=== PATIENT | male | born 1980 | race Caucasian/White ===

== ENCOUNTER → 2017-01-31 | Outpatient (CLI) | payer OTHER ==
[2017-01-31 12:11] LABS: BASO % 1.1 %; BASO ABS # 0.04 K/uL (0-0.2); COMPLETE YES; EOS % 1.9 %; IG% 0.3 %; LYMPH % 36.6 %; LYMPH ABS # 1.37 K/uL (1.2-3.4); MEAN CELL VOLUME 88.1 fL (80-100); MEAN CORPUSCULAR HEMOGLOBIN 31.4 pg (25-34); MEAN CORPUSCULAR HGB CONC 35.6 g/dl (32-36); MEAN PLATELET VOLUME 10.5 fL (7.4-10.4); MONO % 7.8 %; NEUT % 52.3 %; PLATELET COUNT 305 K/uL (130-400); RED BLOOD COUNT 4.88 M/uL (4.7-6.1); WHITE BLOOD COUNT 3.74 K/uL (4.8-10.8)
== END | disposition home or self-care (01) ==
LOC: C.LABPBG 10:27
PROVIDERS: ATTEND Family Medicine
DX: F11.20 Opioid dependence, uncomplicated (principal)

== ENCOUNTER 2017-07-02 15:34 | Emergency (ER) | payer OTHER ==
[~2017-07-02] VITALS: Ht 170.2 cm; Wt 54.1 kg
[2017-07-02 15:35] VITALS: TEMP 36.7; Ht 170.2 cm; Wt 54.1 kg
[2017-07-02] MEDS ORDERED: SODIUM CHLORIDE 0.9% 1000ML 1,000 ML IV STA (15:49)
[2017-07-02] MEDS ORDERED: BUPR1SUB23 PO (16:15)
[2017-07-02] MEDS ORDERED: CITA10TA4 PO (16:15)
[2017-07-02 16:31] LABS: BASO % 0.4 %; BASO ABS # 0.02 K/uL (0-0.2); EOS % 0.6 %; EOS ABS # 0.03 K/uL (0-0.5); HEMATOCRIT 40.4 % (42-52); HEMOGLOBIN 14.8 g/dL (14.0-18.0); IG# 0.01 K/uL (0.00-0.02); LYMPH % 32.8 %; LYMPH ABS # 1.59 K/uL (1.2-3.4); MEAN CELL VOLUME 87.6 fL (80-100); MEAN CORPUSCULAR HEMOGLOBIN 32.1 pg (25-34); MEAN CORPUSCULAR HGB CONC 36.6 g/dl (32-36); MEAN PLATELET VOLUME 10.6 fL (7.4-10.4); MONO % 7.8 %; MONO ABS # 0.38 K/uL (0.11-0.59); NEUT % 58.2 %; NEUT ABS # 2.82 K/uL (1.4-6.5); PLATELET COUNT 233 K/uL (130-400); RED CELL DISTRIBUTION WIDTH SD 41.7 fL (36.4-46.3); WHITE BLOOD COUNT 4.85 K/uL (4.8-10.8)
[2017-07-02 16:42] LABS: PTT PATIENT 27.1 SECONDS (21.0-31.0)
--- NOTE | 2017-07-02 16:42 | DIAGNOSTIC IMAGING REPORT ---
CHEST ONE VIEW PORTABLE CLINICAL HISTORY: 36 years-old Male presenting with ABDOMINAL PAIN/GI. TECHNIQUE: Portable upright AP view of the chest was obtained. COMPARISON: None. FINDINGS: Cardiomediastinal silhouette normal. Mild hyperinflation. No focal opacity. No large effusion or pneumothorax. Osseous structures normal. Upper abdomen normal. IMPRESSION: 1. No acute cardiopulmonary disease. Electronically signed by: Leonardo Faulkner M.D. 07/02/2017 4:40 PM Dictated Date/Time: 07/02/2017 4:40 PM
--- NOTE | 2017-07-02 16:42 | DIAGNOSTIC IMAGING REPORT ---
KUB CLINICAL HISTORY: 36 years-old Male presenting with ABDOMINAL PAIN/GI. TECHNIQUE: Single supine view of the abdomen was obtained. COMPARISON: None. FINDINGS: Nonobstructive bowel gas pattern. No gross pneumoperitoneum. Allowing for bowel gas and stool, no calcifications to suggest nephrolithiasis. Osseous structures normal. Lung bases clear. IMPRESSION: 1. No acute intra-abdominal pathology. Electronically signed by: Leonardo Faulkner M.D. 07/02/2017 4:41 PM Dictated Date/Time: 07/02/2017 4:40 PM
[2017-07-02 16:48] LABS: ALBUMIN 4.7 gm/dl (3.4-5.0); ALT/SGPT 25 U/L (12-78); AST/SGOT 18 U/L (15-37); BLOOD UREA NITROGEN 14 mg/dl (7-18); CALCIUM 9.2 mg/dl (8.5-10.1); CARBON DIOXIDE 30 mmol/L (21-32); CREATININE 0.83 mg/dl (0.60-1.40); GLUCOSE 90 mg/dl (70-99); LIPASE 186 U/L (73-393); POTASSIUM 3.3 mmol/L (3.5-5.1); SODIUM 138 mmol/L (136-145)
[2017-07-02 16:54] LABS: ALKALINE PHOSPHATASE 58 U/L (45-117); CKMB 0.7 ng/ml (0.5-3.6); TOTAL PROTEIN 8.2 gm/dl (6.4-8.2)
[2017-07-02 19:30] VITALS: BP 97/71; PULSE 90; O2SAT 99
--- NOTE | 2017-07-02 19:41 | EMERGENCY ROOM VISIT NOTE ---
History Report prepared by Vy: Yesi Lucsa Under the Supervision of: Dr. Sha Butts D.O. First contact with patient: 15:39 Chief Complaint: CHEST PAIN Stated Complaint: CHEST PAIN, FATIGUE, WEAKNESS History of Present Illness The patient is a 36 year old male who presents to the Emergency Room with complaints of persistent chest pain starting a couple weeks ago. He describes the pain as sharp and it occurs with taking deep breaths. The patient also complains of fatigue mostly in his legs. He has been waking up in the morning with bilateral back pain and is concerned about his kidneys. He has noticed his urine is dark in the morning. He has noticed his heart racing when he is lying on his back. He has tingling in his left shoulder. He has felt out of breath with taking the garbage out. He denies any neck pain, headache, leg pain, leg swelling, abdominal pain, or hematochezia. His stools have been dark, but he is unsure if they are black. He has lost weight, but notes that he does not eat a lot. He has been on Suboxone after a history of prescription drug abuse. He denies any IV drug, alcohol, or tobacco use. He has a history of pneumothorax. He denies any family history of aortic aneurysm. Source of History: patient Onset: couple weeks ago Position: chest Quality: sharp Timing: other (persistent) Modifying Factors (Worsening): breathing Associated Symptoms: + SOB, + back pain, + urinary symptoms, + fatigue, No headache, No neck pain, No abdominal pain, No hematochezia Review of Systems See HPI for pertinent positives & negatives. A total of 10 systems reviewed and were otherwise negative. Past Medical & Surgical Medical Problems: (1) Pneumothorax Family History No family history of aortic aneurysm. Social History Smoking Status: Never Smoker Marital Status: single Occupation Status: unemployed Current/Historical Medications Scheduled Buprenorphine Hcl-Naloxone Hcl (Suboxone 8-2 Mg), 2 MG PO BID Citalopram Hydrobromide (Citalopram Hydrobromide), 10 MG PO DAILY Allergies Coded Allergies: No Known Allergies (Unverified , 07/02/17) Physical Exam Vital Signs Date Time Temp Pulse Resp B/P (MAP) Pulse Ox O2 Delivery O2 Flow Rate FiO2 07/02/17 19:30 90 18 97/71 99 3/7/18 18:59 67 18 117/69 100 Room Air 07/02/17 18:00 70 18 108/72 100 Room Air 07/02/17 17:00 75 18 110/70 100 Room Air 07/02/17 16:30 67 18 113/68 100 Room Air 07/02/17 16:28 65 07/02/17 15:35 36.7 71 20 121/62 100 Room Air Physical Exam GENERAL: Patient is awake, alert, and in no acute distress. Patient is resting comfortably and showing no signs of anxiety EYES: The conjunctivae are clear. The pupils are round and reactive. EARS, NOSE, MOUTH AND THROAT: The nose is without any evidence of any deformity. Mucous membranes are moist tongue is midline NECK: The neck is nontender and supple. RESPIRATORY: Lung sounds diminished in the right lung field. There was no wheezing rhonchi or rales appreciated. CARDIOVASCULAR: Regular rate and rhythm noted there no murmurs rubs or gallops normal S1 normal S2 GASTROINTESTINAL: The abdomen is soft. Bowel sounds are present in all quadrants. Abdomen is nontender MUSCULOSKELETAL/EXTREMITIES: There is no evidence of gross deformity full range of motion is noted in the hips and shoulders SKIN: There is no obvious evidence of any rash. There are no petechiae, pallor or cyanosis noted. NEUROLOGIC: Patient is awake alert and oriented x3 strength is symmetric patellar reflexes are 2+ bilaterally Medical Decision & Procedures ER Provider Diagnostic Interpretation: X-ray results as stated below per interpretation by me and the radiologist. CHEST ONE VIEW PORTABLE CLINICAL HISTORY: 36 years-old Male presenting with ABDOMINAL PAIN/GI. TECHNIQUE: Portable upright AP view of the chest was obtained. COMPARISON: None. FINDINGS: Cardiomediastinal silhouette normal. Mild hyperinflation. No focal opacity. No large effusion or pneumothorax. Osseous structures normal. Upper abdomen normal. IMPRESSION: 1. No acute cardiopulmonary disease. Electronically signed by: Leonardo Faulkner M.D. 07/02/2017 4:40 PM Dictated Date/Time: 07/02/2017 4:40 PM KUB CLINICAL HISTORY: 36 years-old Male presenting with ABDOMINAL PAIN/GI. TECHNIQUE: Single supine view of the abdomen was obtained. COMPARISON: None. FINDINGS: Nonobstructive bowel gas pattern. No gross pneumoperitoneum. Allowing for bowel gas and stool, no calcifications to suggest nephrolithiasis. Osseous structures normal. Lung bases clear. IMPRESSION: 1. No acute intra-abdominal pathology. Electronically signed by: Leonardo Faulkner M.D. 07/02/2017 4:41 PM Dictated Date/Time: 07/02/2017 4:40 PM Laboratory Results 07/02/17 16:15 Red Blood Count 4.61, Mean Corpuscular Volume 87.6, Mean Corpuscular Hemoglobin 32.1, Mean Corpuscular Hemoglobin Concent 36.6, Mean Platelet Volume 10.6, Neutrophils (%) (Auto) 58.2, Lymphocytes (%) (Auto) 32.8, Monocytes (%) (Auto) 7.8, Eosinophils (%) (Auto) 0.6, Basophils (%) (Auto) 0.4, Neutrophils # (Auto) 2.82, Lymphocytes # (Auto) 1.59, Monocytes # (Auto) 0.38, Eosinophils # (Auto) 0.03, Basophils # (Auto) 0.02 07/02/17 16:15 Test 07/02/17 16:05 07/02/17 16:15 07/02/17 16:24 07/02/17 18:06 Urine Color YELLOW Urine Appearance CLEAR (CLEAR) Urine pH 7.5 (4.5-7.5) Urine Specific [place] 1.007 (1.000-1.030) Urine Protein NEG (NEG) Urine Glucose (UA) NEG (NEG) Urine Ketones NEG (NEG) Urine Occult Blood TRACE (NEG) Urine Nitrite NEG (NEG) Urine Bilirubin NEG (NEG) Urine Urobilinogen NEG (NEG) Urine Leukocyte Esterase NEG (NEG) Urine WBC (Auto) 0 /hpf (0-5) Urine RBC (Auto) 0-4 /hpf (0-4) Urine Hyaline Casts (Auto) 0 /lpf (0-5) Urine Epithelial Cells (Auto) 0-5 /lpf (0-5) Urine Bacteria (Auto) NEG (NEG) White Blood Count 4.85 K/uL (4.8-10.8) Red Blood Count 4.61 M/uL (4.7-6.1) Hemoglobin 14.8 g/dL (14.0-18.0) Hematocrit 40.4 % (42-52) Mean Corpuscular Volume 87.6 fL (80-100) Mean Corpuscular Hemoglobin 32.1 pg (25-34) Mean Corpuscular Hemoglobin Concent 36.6 g/dl (32-36) Platelet Count 233 K/uL (130-400) Mean Platelet Volume 10.6 fL (7.4-10.4) Neutrophils (%) (Auto) 58.2 % Lymphocytes (%) (Auto) 32.8 % Monocytes (%) (Auto) 7.8 % Eosinophils (%) (Auto) 0.6 % Basophils (%) (Auto) 0.4 % Neutrophils # (Auto) 2.82 K/uL (1.4-6.5) Lymphocytes # (Auto) 1.59 K/uL (1.2-3.4) Monocytes # (Auto) 0.38 K/uL (0.11-0.59) Eosinophils # (Auto) 0.03 K/uL (0-0.5) Basophils # (Auto) 0.02 K/uL (0-0.2) RDW Standard Deviation 41.7 fL (36.4-46.3) RDW Coefficient of Variation 13.0 % (11.5-14.5) Immature Granulocyte % (Auto) 0.2 % Immature Granulocyte # (Auto) 0.01 K/uL (0.00-0.02) Prothrombin Time 11.0 SECONDS (9.0-12.0) Prothromb Time International Ratio 1.0 (0.9-1.1) Activated Partial Thromboplast Time 27.1 SECONDS (21.0-31.0) Partial Thromboplastin Ratio 1.0 Anion Gap 4.0 mmol/L (3-11) Est Creatinine Clear Calc Drug Dose 96.0 ml/min Estimated GFR () 133.1 Estimated GFR (Non- 114.8 BUN/Creatinine Ratio 17.1 (10-20) Calcium Level 9.2 mg/dl (8.5-10.1) Total Bilirubin 0.9 mg/dl (0.2-1) Direct Bilirubin 0.2 mg/dl (0-0.2) Aspartate Amino Transf (AST/SGOT) 18 U/L (15-37) Alanine Aminotransferase (ALT/SGPT) 25 U/L (12-78) Alkaline Phosphatase 58 U/L (45-117) Total Creatine Kinase 86 U/L (39-308) Creatine Kinase MB 0.7 ng/ml (0.5-3.6) Creatine Kinase MB Ratio 0.8 (0-3.0) Total Protein 8.2 gm/dl (6.4-8.2) Albumin 4.7 gm/dl (3.4-5.0) Lipase 186 U/L (73-393) Bedside D-Dimer 91 ng/mlFEU (0-450) Troponin I < 0.015 ng/ml (0-0.045) Laboratory results per my review. Medications Administered Medications (Trade) Dose Ordered Sig/Kylah Route Start Time Stop Time Status Last Admin Dose Admin Sodium Chloride 1,000 ml @ 999 mls/hr Q1H1M STAT IV 07/02/17 15:49 07/02/17 16:49 DC 07/02/17 16:17 999 MLS/HR ECG Per My Interpretation Indication: chest pain Rate (beats per minute): 56 Rhythm: sinus bradycardia Findings: ST depression (Inferior), other (no PVC) Comparison ECG Date: no prior available ED Course 1543: The patient was evaluated in room C11B. A complete history and physical examination were performed. 1549: NSS 1000 ml @ 999 mls/hr IV. 1825: Repeat EKG at this time per my interpretation shows normal sinus rhythm, rate 74, no PVCs were appreciated. No significant change from earlier tracing. 1909: Upon reevaluation, the patient is resting comfortably. I discussed the results and treatment plan with him. He verbalized agreement of the treatment plan. He was discharged home. Medical Decision Prior records/ancillary studies reviewed. Triage Nursing notes reviewed. The patient's history was concerning for chest pain. Differential diagnosis: Etiologies such as cardiac ischemia, aortic dissection, pulmonary embolism, pneumonia, pneumothorax, musculoskeletal, infections, pericarditis, myocarditis , esophageal rupture, gastrointestinal, as well as others were entertained. The patient is a 36-year-old male who presented to the emergency department for evaluation of multiple complaints including chest discomfort weight loss and difficulty breathing. The patient has had ongoing symptoms for quite some time. He was seen at an outside facility and at that time had a complete cardiac workup which was noncontributory. The patient states that he was seen by mall manager and was told that his heart was healthy. The patient's EKG did show some nonspecific abnormalities but no previous EKG was able to be obtained. I discussed the patient's laboratory and radiographic studies with him. I also discussed the limitations of the emergency department workup for chest pain with him. I offered to have the patient evaluated by the hospitalist for possible inpatient management but he was feeling much better. He was encouraged to rest and avoid any strenuous activity. He chose to be discharged home so we could follow-up with his primary care physician. I also encouraged him to return to the emergency department immediately if symptoms change worsen or the need arises. Medication Reconcilliation Current Medication List: was personally reviewed by me Blood Pressure Screening Patient's blood pressure: Normal blood pressure Blood pressure disposition: Did not require urgent referral Impression Primary Impression: Chest pain Additional Impression: CORDERO (dyspnea on exertion) Scribe Attestation The scribe's documentation has been prepared under my direction and personally reviewed by me in its entirety. I confirm that the note above accurately reflects all work, treatment, procedures, and medical decision making performed by me. Departure Information Dispostion Home / Self-Care Referrals Rosenda Melo, D.O. Forms Call Back Authorization, HOME CARE DOCUMENTATION FORM, IMPORTANT VISIT INFORMATION Patient Instructions ED Chest Pain Atypical Unkn Cause, My [facility] Additional Instructions Call your family doctor to schedule a follow-up appointment. Rest and avoid any strenuous activity. I would recommend a follow-up appointment with a mall manager to further evaluate the cause your symptoms. Return to the emergency department immediately if symptoms change worsen or the need arises. Problem Qualifiers Primary Impression: Chest pain Chest pain type: unspecified Qualified Codes: R07.9 - Chest pain, unspecified
== END 2017-07-02 19:30 | disposition home or self-care (01) ==
LOC: C.EDB 15:35 → C.EDC 19:30
DX: R07.9 Chest pain, unspecified (principal); R06.09 Other forms of dyspnea; Z79.891 Long term (current) use of opiate analgesic; Z87.09 Personal history of other diseases of the respiratory system

== ENCOUNTER 2017-07-04 05:05 | Emergency (ER) | payer OTHER ==
[~2017-07-04] VITALS: Ht 170.2 cm; Wt 52.1 kg
[~2017-07-04 05:05] MED LIST: BUPR1SUB23 PO; CITA10TA4 PO
[2017-07-04] MEDS ORDERED: KETOROLAC TROMETHAMINE 30 MG/ML VIAL IV STA (05:09)
[2017-07-04 05:15] VITALS: TEMP 36.9; O2SAT 100; Ht 170.2 cm; Wt 52.1 kg
[2017-07-04] MEDS ORDERED: OPTIRAY 320 IV PRN (05:15)
[2017-07-04] MEDS ORDERED: ALUMINUM/MAGNESIUM SUSP 30 ML UDC PO STA (05:28)
[2017-07-04] MEDS ORDERED: LIDOCAINE HCL 2% VISC SOLN 20 ML UDC PO STA (05:28)
[2017-07-04 05:31] LABS: BASO % 0.8 %; BASO ABS # 0.03 K/uL (0-0.2); EOS % 1.8 %; EOS ABS # 0.07 K/uL (0-0.5); HEMATOCRIT 41.2 % (42-52); HEMOGLOBIN 14.2 g/dL (14.0-18.0); LYMPH % 38.1 %; LYMPH ABS # 1.46 K/uL (1.2-3.4); MEAN CELL VOLUME 88.2 fL (80-100); MEAN CORPUSCULAR HEMOGLOBIN 30.4 pg (25-34); MEAN CORPUSCULAR HGB CONC 34.5 g/dl (32-36); MEAN PLATELET VOLUME 9.9 fL (7.4-10.4); MONO % 8.6 %; MONO ABS # 0.33 K/uL (0.11-0.59); NEUT % 50.7 %; NEUT ABS # 1.94 K/uL (1.4-6.5); PLATELET COUNT 214 K/uL (130-400); RED CELL DISTRIBUTION WIDTH CV 13.1 % (11.5-14.5); RED CELL DISTRIBUTION WIDTH SD 41.9 fL (36.4-46.3); WHITE BLOOD COUNT 3.83 K/uL (4.8-10.8)
[2017-07-04 05:40] LABS: ISTAT CREATININE 0.8 mg/dl (0.6-1.3); ISTAT IONIZED CALCIUM 1.2 mmol/l (1.12-1.32); ISTAT POTASSIUM 3.3 mEq/L (3.3-5.0)
[2017-07-04 05:49] LABS: ALBUMIN 4.3 gm/dl (3.4-5.0); ALT/SGPT 23 U/L (12-78); AST/SGOT 14 U/L (15-37); BLOOD UREA NITROGEN 13 mg/dl (7-18); CALCIUM 8.9 mg/dl (8.5-10.1); CARBON DIOXIDE 26 mmol/L (21-32); CREATININE 0.87 mg/dl (0.60-1.40); GLUCOSE 84 mg/dl (70-99); LIPASE 203 U/L (73-393); POTASSIUM 3.3 mmol/L (3.5-5.1); SODIUM 140 mmol/L (136-145)
[2017-07-04] MEDS ORDERED: POTASSIUM CHLORIDE 10 MEQ TABCR PO STA (05:53)
[2017-07-04 05:54] LABS: ALKALINE PHOSPHATASE 54 U/L (45-117); TOTAL PROTEIN 7.5 gm/dl (6.4-8.2)
--- NOTE | 2017-07-04 06:57 | EMERGENCY ROOM VISIT NOTE ---
History First contact with patient: 05:07 Chief Complaint: PAIN (GENERALIZED) Stated Complaint: EPIGASTRIC PAIN History of Present Illness The patient is a 36 year old male who presents to the Emergency Room with complaints of epigastric pain for the past several months with shortness of breath with chronic fatigue. Patient has an appointment today with family care doctor. Patient was seen here 2 days for the same complaint. Patient is on chronic Suboxone. He is advised IV drug abuse and tobacco use. He describes pain as aching, ranging in severity 5 out of 10 throughout the epigastric and left chest. Nothing makes it better or worse. He feels short of breath unchanged the past several months. Patient states is also been to the [place] ER for the same complaint with unclear etiology. No family history of heart disease or blood clots. Patient denies abdominal pain, fever, chills, cough, congestion, vomiting, diarrhea, night sweats, weight loss. Review of Systems An 10 system review of systems was completed with positives and pertinent negatives listed in the HPI. Past Medical/Surgical History Medical Problems: (1) Pneumothorax Social History Smoking Status: Never Smoker Marital Status: single Occupation Status: unemployed Current/Historical Medications Scheduled Buprenorphine Hcl-Naloxone Hcl (Suboxone 8-2 Mg), 2 MG PO BID Citalopram Hydrobromide (Citalopram Hydrobromide), 10 MG PO DAILY Physical Exam Vital Signs Date Time Temp Pulse Resp B/P (MAP) Pulse Ox O2 Delivery O2 Flow Rate FiO2 07/04/17 06:40 67 14 113/80 100 Room Air 07/04/17 05:37 78 07/04/17 05:35 70 17 100 07/04/17 05:20 71 24 100 Room Air 07/04/17 05:15 100 Room Air 07/04/17 05:15 36.9 78 14 118/84 100 Room Air 07/04/17 05:15 100 Room Air 07/04/17 05:13 118/84 Physical Exam VITALS: Vitals are noted on the nurse's note and reviewed by myself. Vital signs stable. GENERAL: White male anxious appearing speaking in full sentences, in no acute distress, nondiaphoretic, well-developed well-nourished. SKIN: The skin was without rashes, erythema, edema, or bruising. There is no tenting of the skin. Capillary reflex less than 2 seconds. HEAD: Normocephalic atraumatic. EARS: External auditory canals clear, tympanic membranes pearly mccormack without erythema or effusion bilaterally. EYES: Pupils equal round and reactive to light and accommodation. Conjunctivae without injection, sclerae without icterus. Extraocular movements intact. NOSE: Patent, turbinates without inflammation or discharge. MOUTH: Mucous membranes moist. Pharynx without erythema or exudate. Uvula midline. Airway patent. Tongue does not deviate. NECK: Supple without nuchal rigidity. No lymphadenopathy. No thyromegaly. Cervical spine is nontender. No JVD. HEART: Regular rate and rhythm without murmurs gallops or rubs. Chest nontender to palpation LUNGS: Clear to auscultation bilaterally without wheezes, rales or rhonchi. No retractions or accessory muscle use. ABDOMEN: Positive bowel sounds x 4. Normal tympanic percussion. Soft, nontender, without masses or organomegaly. Desouza sign negative. No guarding or rebound tenderness. No CVA tenderness MUSCULOSKELETAL: No muscle atrophy, erythema, or edema noted. NEURO: Patient was alert and oriented to person place and time. Normal sensation to light and sharp touch. No focal neurological deficits. Medical Decision & Procedures Laboratory Results 07/04/17 05:20 Red Blood Count 4.67, Mean Corpuscular Volume 88.2, Mean Corpuscular Hemoglobin 30.4, Mean Corpuscular Hemoglobin Concent 34.5, Mean Platelet Volume 9.9, Neutrophils (%) (Auto) 50.7, Lymphocytes (%) (Auto) 38.1, Monocytes (%) (Auto) 8.6, Eosinophils (%) (Auto) 1.8, Basophils (%) (Auto) 0.8, Neutrophils # (Auto) 1.94, Lymphocytes # (Auto) 1.46, Monocytes # (Auto) 0.33, Eosinophils # (Auto) 0.07, Basophils # (Auto) 0.03 07/04/17 05:20 Test 07/04/17 05:20 07/04/17 05:24 07/04/17 05:27 07/04/17 05:55 White Blood Count 3.83 K/uL (4.8-10.8) Red Blood Count 4.67 M/uL (4.7-6.1) Hemoglobin 14.2 g/dL (14.0-18.0) Hematocrit 41.2 % (42-52) Mean Corpuscular Volume 88.2 fL (80-100) Mean Corpuscular Hemoglobin 30.4 pg (25-34) Mean Corpuscular Hemoglobin Concent 34.5 g/dl (32-36) Platelet Count 214 K/uL (130-400) Mean Platelet Volume 9.9 fL (7.4-10.4) Neutrophils (%) (Auto) 50.7 % Lymphocytes (%) (Auto) 38.1 % Monocytes (%) (Auto) 8.6 % Eosinophils (%) (Auto) 1.8 % Basophils (%) (Auto) 0.8 % Neutrophils # (Auto) 1.94 K/uL (1.4-6.5) Lymphocytes # (Auto) 1.46 K/uL (1.2-3.4) Monocytes # (Auto) 0.33 K/uL (0.11-0.59) Eosinophils # (Auto) 0.07 K/uL (0-0.5) Basophils # (Auto) 0.03 K/uL (0-0.2) RDW Standard Deviation 41.9 fL (36.4-46.3) RDW Coefficient of Variation 13.1 % (11.5-14.5) Immature Granulocyte % (Auto) 0.0 % Immature Granulocyte # (Auto) 0.00 K/uL (0.00-0.02) Est Creatinine Clear Calc Drug Dose 88.2 ml/min Estimated GFR () 130.5 Estimated GFR (Non- 112.6 BUN/Creatinine Ratio 14.6 (10-20) Calcium Level 8.9 mg/dl (8.5-10.1) Total Bilirubin 0.9 mg/dl (0.2-1) Direct Bilirubin 0.2 mg/dl (0-0.2) Aspartate Amino Transf (AST/SGOT) 14 U/L (15-37) Alanine Aminotransferase (ALT/SGPT) 23 U/L (12-78) Alkaline Phosphatase 54 U/L (45-117) Troponin I < 0.015 ng/ml (0-0.045) Total Protein 7.5 gm/dl (6.4-8.2) Albumin 4.3 gm/dl (3.4-5.0) Lipase 203 U/L (73-393) Bedside Troponin I < 0.030 ng/ml (0-0.045) Bedside Hemoglobin 13.6 g/dl (14.0-18.0) Bedside Hematocrit 40 % (42-52) Bedside Sodium 143 mEq/L (135-144) Bedside Potassium 3.3 mEq/L (3.3-5.0) Bedside Chloride 102 mEq/L (101-112) Bedside Total CO2 25 mEq/l (24-31) Anion Gap 20.0 mmol/L (16-25) Bedside Blood Urea Nitrogen 13 mg/dl (7-18) Bedside Creatinine 0.8 mg/dl (0.6-1.3) Bedside Glucose (other) 85 mg/dl (70-99) Bedside Ionized Calcium (Dusty) 1.20 mmol/l (1.12-1.32) Urine Opiates Screen NEG (NEG) Urine Methadone, Qualitative NEG (NEG) Urine Barbiturates NEG (NEG) Urine Phencyclidine (PCP) Level NEG (NEG) Ur Amphetamine/Methamphetamine NEG (NEG) MDMA (Ecstasy) Screen NEG (NEG) Urine Benzodiazepines Screen NEG (NEG) Urine Cocaine Metabolite NEG (NEG) Urine Marijuana (THC) NEG (NEG) Medications Administered Medications (Trade) Dose Ordered Sig/Kylah Route Start Time Stop Time Status Last Admin Dose Admin Ketorolac Tromethamine (Toradol Inj) 30 mg NOW STAT IV 07/04/17 05:09 07/04/17 05:10 DC 07/04/17 05:26 30 MG Lidocaine HCl (Viscous Lidocaine 2% Soln) 10 ml NOW STAT PO 07/04/17 05:28 07/04/17 05:29 DC 07/04/17 05:40 10 ML Al Hydroxide/Mg Hydroxide (Maalox Susp) 30 ml NOW STAT PO 07/04/17 05:28 07/04/17 05:29 DC 07/04/17 05:40 30 ML Potassium Chloride (Klor-Con M10) 20 meq NOW STAT PO 07/04/17 05:53 07/04/17 05:54 DC 07/04/17 06:39 20 MEQ ED Course Prior records/ancillary studies reviewed. Triage Nursing notes reviewed. Additional history obtained from EMS. The patient's history was concerning for chest pain. Differential diagnosis: Etiologies such as cardiac ischemia, aortic dissection, pulmonary embolism, pneumonia, pneumothorax, musculoskeletal, infections, pericarditis, myocarditis , esophageal rupture, gastrointestinal, as well as others were entertained. Physical examination: As above. ER treatment provided: Toradol, GI cocktail On reassessment the patient felt better. Diagnostic interpretation by me: The electrocardiogram was negative for pathologic change. Poor baseline, normal sinus, normal intervals, no acute ST-T wave changes. Impression normal sinus rhythm interpreted by myself The labs revealed negative troponin. Stable H&H. Imaging studies: CTA neg for PE Exam and history seem consistent with chronic chest pain with ongoing chronic dyspnea and fatigue. Symptoms been ongoing for several months now. He had extensive workup the other day. He seen [place] [facility] and had unremarkable workup there. He has an appointment today with his family care doctor. He is advised to keep this. He was advised to get outpatient referral to cardiology for further evaluation and workup for his ongoing symptoms. Patient was advised to rest, stay well-hydrated and return to the ER immediately for chest pain, difficulty breathing, worsening signs or symptoms or as needed. Patient has received Suboxone from multiple different prescribers. Patient was asked about this. By the evaluation outlined above emergent etiologies such as cardiac ischemia, aortic dissection, pulmonary embolism, pneumonia, pneumothorax, infections, pericarditis, myocarditis, gastrointestinal, as well as others were deemed relatively unlikely. The pt informed about the findings as listed above. All questions were answered and pleased with the treatment. Return instructions were outlined and the patient was discharged in stable condition. Referral: The patient was referred back to primary care physician for follow-up today as scheduled for a recheck of the current condition. Case reviewed with my attending The chart was completed utilizing [employer] Speech voice recognition software. Grammatical errors, random word insertions, pronoun errors, and incomplete sentences are an occassional consequence of this system due to software limitations, ambient noise, and hardware issues. Any formal questions or concerns about the content, text, or information contained within the body of this dictation should be directly addressed to the physician exceptional children teacher assistant for clarification. Medical Decision As above [place] Drug Monitoring Program Search Results: patient reviewed within database, see additional documentation (Multiple different prescribers in different areas for his Suboxone) Medication Reconcilliation Current Medication List: was personally reviewed by me Blood Pressure Screening Patient's blood pressure: Normal blood pressure Impression Primary Impression: Chronic chest pain Additional Impressions: Dyspnea on exertion Fatigue Departure Information Dispostion Home / Self-Care Condition GOOD Referrals Rosenda Melo D.O. (PCP) Patient Instructions My [facility] Additional Instructions Ibuprofen(Motrin, Advil) may be used for fever or pain. Use 600mg every six hours as needed. Take with food. Avoid using more than 2400mg in a 24 hour period. Do not use 2400mg per day for more than three consecutive days without physician direction. Prolonged inappropriate use can lead to stomach upset or ulcers. (AND/OR) Acetaminophen(Tylenol) may be used for fever or pain. Use 1000mg every six hours as needed. Avoid using more than 3000mg in a 24 hour period. Rest and drink plenty of fluids as tolerated. Continue current medications. Avoid strenuous activities and anything that worsens your pain. Resume normal activities once your symptoms resolve. Return to the ER immediately for worsening or persistent chest pain, abdominal pain, vomiting, fevers, chest pains, difficulty breathing, worsening of your condition, or as needed. Follow up with your primary physician today as scheduled for a recheck of your current condition. Problem Qualifiers
--- NOTE | 2017-07-04 06:58 | DIAGNOSTIC IMAGING REPORT ---
(CHEST FOR PE) ANGIO WITH CT DOSE: 233.99 mGy.cm HISTORY: Chest pain dyspnea TECHNIQUE: Multiaxial CT images of the chest were performed following the intravenous administration of contrast to evaluate the pulmonary arteries. Maximal intensity projection images were also obtained. A dose lowering technique was utilized adhering to the principles of ALARA. COMPARISON STUDY: None. FINDINGS: There is a normal caliber thoracic aorta with no evidence for dissection. There is no evidence for pulmonary embolus. No pleural effusions. No pneumothorax. The liver and spleen are unremarkable. No mediastinal or hilar lymphadenopathy. The central airways are patent. The lungs are clear. Minimal chronic right apical fibrosis IMPRESSION: No evidence for pulmonary embolus. The lungs are clear. The above report was generated using voice recognition software. It may contain grammatical, syntax or spelling errors. Electronically signed by: Chavez Rand M.D. 07/04/2017 6:57 AM Dictated Date/Time: 07/04/2017 6:53 AM
[2017-07-04 07:17] VITALS: BP 120/82; PULSE 82; O2SAT 100
== END 2017-07-04 07:18 | disposition home or self-care (01) ==
LOC: EDBD 05:05 → C.EDA 05:06
DX: R07.9 Chest pain, unspecified (principal); R06.09 Other forms of dyspnea; R53.83 Other fatigue

== ENCOUNTER → 2017-07-09 | Outpatient (CLI) | payer OTHER ==
[~2017-07-09] MED LIST changes: +ONDA4TAB10 SL; +OPTIRAY 320 IV PRN
--- NOTE | 2017-07-09 16:11 | DIAGNOSTIC IMAGING REPORT ---
CT OF THE ABDOMEN AND PELVIS WITH CONTRAST CLINICAL HISTORY: Fatigue, anorexia and abdominal pain. COMPARISON STUDY: KUB July 02, 2017. TECHNIQUE: Following IV administration of 93 mL of [id number]-320, axial images of the abdomen and pelvis were obtained from the lung bases to the proximal femurs. Images were reviewed in the axial, sagittal, and coronal planes. IV contrast was administered without complication. A dose lowering technique was utilized adhering to the principles of ALARA. Oral contrast was administered. CT DOSE: 232.27 mGycm FINDINGS: Lung bases are clear. The liver, spleen, adrenal glands, kidneys and pancreas are normal. There is no biliary or pancreatic ductal dilatation. There is no hydronephrosis. The caliber and wall thickness of small and large bowel is normal. The appendix is normal. Sensitivity for detection mucosal lesions is diminished given CT technique. There is no abdominal or pelvic lymphadenopathy. No ascites is present. No suspicious osseous lesions are present. Major vasculature of the abdomen and pelvis is patent. IMPRESSION: 1. No acute process within the abdomen or pelvis. Normal appendix. No bowel obstruction. 2. Decreased sensitivity for detection mucosal lesions given CT technique. Electronically signed by: Lg Rasmussen M.D. 07/09/2017 4:10 PM Dictated Date/Time: 07/09/2017 4:03 PM
== END | disposition home or self-care (01) ==
LOC: C.CTS 13:15
PROVIDERS: ATTEND Nurse Practitioner
DX: R53.83 Other fatigue (principal); R63.4 Abnormal weight loss; R63.0 Anorexia; R10.11 Right upper quadrant pain

== ENCOUNTER 2017-07-11 18:55 | Emergency (ER) | payer OTHER ==
[~2017-07-11] VITALS: Ht 170.2 cm; Wt 51.6 kg
[~2017-07-11 18:55] MED LIST changes: -ONDA4TAB10 SL; -OPTIRAY 320 IV PRN
[2017-07-11 19:05] VITALS: TEMP 36.9; Ht 170.2 cm; Wt 51.6 kg
--- NOTE | 2017-07-11 19:17 | EMERGENCY ROOM VISIT NOTE ---
History Report prepared by Vy: Gordon Estrada Under the Supervision of: Dr. Elio Rand M.D. First contact with patient: 18:55 Chief Complaint: FLANK PAIN Stated Complaint: FLANK PAIN, BREATHING DIFF History of Present Illness The patient is a 36 year old male who presents to the Emergency Room with complaints of shortness of breath and a heart flutter that suddenly began prior to arrival. He states that he recently had blood in his stool and has not had a bowel movement for 2 days. For the past 2 months, the patient states that he has bilateral flank pain, and fatigue, along with a 20 lb weight loss despite having a normal appetite. He reports lightheadedness and intermittent abdominal pain, with right side worse than left. He denies pain with inspiration. He states that he is taking Suboxone for his shoulder and denies withdrawal symptoms. The patient recently had an US (liver, heart) and a CT (abdomen) at [facility] with benign findings. He recently had his thyroid levels checked in [place] which were normal. The patient states that he had a spontaneous collapsed lung 5 years ago and that this episode is different. He denies vomiting, hematuria, chest pain, and fevers. Source of History: patient, EMS Onset: [employer] Position: abdomen, back (bilateral), other (lungs and heart) Symptom Intensity: pain rated as 6/10 Timing: intermittent Modifying Factors (Relieving): other (No pain with inspiration) Associated Symptoms: + SOB, + abdominal pain (Right side worse than left), + fatigue, No fevers, No chest pain, No vomiting, No urinary symptoms Note: Patient reports lightheadedness, and abnormal bowel movement. Review of Systems See HPI for pertinent positives & negatives. A total of 10 systems reviewed and were otherwise negative. Past Medical & Surgical Medical Problems: (1) Pneumothorax Old medical records were reviewed. Nurse's notes were reviewed and I agree with. Family History FHx: leukemia Social History Smoking Status: Never Smoker Smokeless Tobacco Use: No Alcohol Use: none Drug Use: none Occupation Status: unemployed Current/Historical Medications Scheduled Buprenorphine Hcl-Naloxone Hcl (Suboxone 8-2 Mg), 2 MG PO BID Citalopram Hydrobromide (Citalopram Hydrobromide), 10 MG PO DAILY Allergies Coded Allergies: No Known Allergies (Unverified , 07/11/17) Physical Exam Vital Signs Date Time Temp Pulse Resp B/P (MAP) Pulse Ox O2 Delivery O2 Flow Rate FiO2 07/11/17 20:46 65 20 119/78 100 07/11/17 19:58 55 18 115/71 99 Room Air 07/11/17 19:05 36.9 70 18 137/83 98 Room Air Physical Exam General: Non-ill appearing young, mildly anxious, somewhat cachetic in no acute distress. HEENT: Normal cephalic atraumatic. Pupils are equal round and reactive to light. Extraocular movements are intact. Oropharynx is pink with moist mucous membranes. No swelling of the mouth lips or tongue. Neck: Supple with a midline trachea. No meningeal signs or stiffness, no JVD or bruits. No Stridor. Chest: Clear to auscultation bilaterally. No wheezes or rhonchi. No increased work of breathing. Heart: regular rate and rhythm. Abdomen: Soft nontender, nondistended without rebound guarding or rigidity. Extremities: No cyanosis clubbing or edema. No calf tenderness or assymetry Spine/Back. Non tender to palpation. No CVA tenderness Skin: Good turgor without rashes. Neurologic exam: Cranial nerves two through 12 are intact. Motor and sensation are intact and symmetrical throughout. Medical Decision & Procedures ER Provider Diagnostic Interpretation: Radiology results as stated below per my review and radiologist interpretation: CHEST ONE VIEW PORTABLE CLINICAL HISTORY: CHEST PAIN dyspnea COMPARISON STUDY: 07/02/2017 FINDINGS: The bones soft tissues and hemidiaphragms are normal. The cardiomediastinal silhouette is normal. The lungs are clear. The pulmonary vasculature is normal. IMPRESSION: Negative chest. The above report was generated using voice recognition software. It may contain grammatical, syntax or spelling errors. Electronically signed by: Chavez Rand M.D. 07/11/2017 7:18 PM Dictated Date/Time: 07/11/2017 7:18 PM Laboratory Results 07/11/17 19:20 Red Blood Count 4.65, Mean Corpuscular Volume 87.3, Mean Corpuscular Hemoglobin 31.4, Mean Corpuscular Hemoglobin Concent 36.0, Mean Platelet Volume 10.8, Neutrophils (%) (Auto) 48.8, Lymphocytes (%) (Auto) 41.2, Monocytes (%) (Auto) 8.0, Eosinophils (%) (Auto) 1.2, Basophils (%) (Auto) 0.8, Neutrophils # (Auto) 2.46, Lymphocytes # (Auto) 2.07, Monocytes # (Auto) 0.40, Eosinophils # (Auto) 0.06, Basophils # (Auto) 0.04 07/11/17 19:20 Test 07/11/17 19:10 07/11/17 19:20 Urine Color DK YELLOW Urine Appearance CLEAR (CLEAR) Urine pH 6.0 (4.5-7.5) Urine Specific Fisher 1.024 (1.000-1.030) Urine Protein TRACE (NEG) Urine Glucose (UA) NEG (NEG) Urine Ketones TRACE (NEG) Urine Occult Blood NEG (NEG) Urine Nitrite NEG (NEG) Urine Bilirubin NEG (NEG) Urine Urobilinogen NEG (NEG) Urine Leukocyte Esterase NEG (NEG) Urine WBC (Auto) 1-5 /hpf (0-5) Urine RBC (Auto) 0-4 /hpf (0-4) Urine Hyaline Casts (Auto) 1-5 /lpf (0-5) Urine Epithelial Cells (Auto) 5-10 /lpf (0-5) Urine Bacteria (Auto) NEG (NEG) White Blood Count 5.03 K/uL (4.8-10.8) Red Blood Count 4.65 M/uL (4.7-6.1) Hemoglobin 14.6 g/dL (14.0-18.0) Hematocrit 40.6 % (42-52) Mean Corpuscular Volume 87.3 fL (80-100) Mean Corpuscular Hemoglobin 31.4 pg (25-34) Mean Corpuscular Hemoglobin Concent 36.0 g/dl (32-36) Platelet Count 229 K/uL (130-400) Mean Platelet Volume 10.8 fL (7.4-10.4) Neutrophils (%) (Auto) 48.8 % Lymphocytes (%) (Auto) 41.2 % Monocytes (%) (Auto) 8.0 % Eosinophils (%) (Auto) 1.2 % Basophils (%) (Auto) 0.8 % Neutrophils # (Auto) 2.46 K/uL (1.4-6.5) Lymphocytes # (Auto) 2.07 K/uL (1.2-3.4) Monocytes # (Auto) 0.40 K/uL (0.11-0.59) Eosinophils # (Auto) 0.06 K/uL (0-0.5) Basophils # (Auto) 0.04 K/uL (0-0.2) RDW Standard Deviation 41.2 fL (36.4-46.3) RDW Coefficient of Variation 12.9 % (11.5-14.5) Immature Granulocyte % (Auto) 0.0 % Immature Granulocyte # (Auto) 0.00 K/uL (0.00-0.02) D-Dimer < 190 ug/L FEU (0-500) Anion Gap 9.0 mmol/L (3-11) Est Creatinine Clear Calc Drug Dose 79.1 ml/min Estimated GFR () 119.0 Estimated GFR (Non- 102.7 BUN/Creatinine Ratio 16.1 (10-20) Calcium Level 9.2 mg/dl (8.5-10.1) Total Bilirubin 0.7 mg/dl (0.2-1) Direct Bilirubin 0.2 mg/dl (0-0.2) Aspartate Amino Transf (AST/SGOT) 17 U/L (15-37) Alanine Aminotransferase (ALT/SGPT) 25 U/L (12-78) Alkaline Phosphatase 58 U/L (45-117) Troponin I < 0.015 ng/ml (0-0.045) Total Protein 8.1 gm/dl (6.4-8.2) Albumin 4.7 gm/dl (3.4-5.0) Lipase 301 U/L (73-393) Thyroid Stimulating Hormone (TSH) 2.780 uIu/ml (0.300-4.500) Laboratory studies as stated above per my review. ECG Per My Interpretation Indication: SOB/dyspnea Rate (beats per minute): 57 Rhythm: sinus bradycardia Findings: no acute ischemic change, no ectopy Comparison ECG Date: 07/04/2017 Change: no significant change ED Course 1854: Past medical records reviewed. The patient was evaluated in room B12B, and a complete history and physical examination were performed. 0: I checked on the patient and he is resting comfortably. 2033: I checked on the patient and he feels better. He would like to go home. 2039: Upon reevaluation, the patient is doing well. I discussed the results and treatment plan with the patient. He verbalized agreement of the treatment plan. The patient was discharged home. Medical Decision Differential diagnoses includes cardiac disease, arrhythmia, infection, pneumothorax, pulmonary embolism, kidney stone, electrolyte and metabolic abnormality. This patient comes in as described above. He has had some shortness of breath he also has bilateral flank pain. He has been here several times in the last week or so with chest pain. He denies any trauma. He looks well on exam. I have reviewed his old records. He had a CT of his chest done less than a week ago and showed no PE or acute abnormalities. He also had a CAT scan of his abdomen done this week which was also negative. EKG was obtained . chest x-ray and multiple blood testing was obtained. He was reassessed frequently. He has a negative d-dimer. His cardiac biomarkers are not elevated. He has nothing to suggest cardiac disease or diabetes or thyroid disease. He has no acute electrolyte or metabolic abnormality. He does seem to be anxious and this could be playing some role here to. I recommend that he follow-up with his regular doctor is feeling much better. He should return if: increasing pain, worsening of symptoms, any new problems or concerns. Medication Reconcilliation Current Medication List: was personally reviewed by me Blood Pressure Screening Patient's blood pressure: Normal blood pressure Blood pressure disposition: Did not require urgent referral Impression Primary Impression: SOB (shortness of breath) Additional Impression: Bilateral flank pain Scribe Attestation The scribe's documentation has been prepared under my direction and personally reviewed by me in its entirety. I confirm that the note above accurately reflects all work, treatment, procedures, and medical decision making performed by me. Departure Information Dispostion Home / Self-Care Patient Instructions My [facility] Additional Instructions Rest. Drink plenty of fluids. Follow-up with your doctor on Friday, keep your appointment with the GI specialist Return to the ER if: Worsening of symptoms, shortness of breath, fever or chills , any new problems or concerns Problem Qualifiers
--- NOTE | 2017-07-11 19:20 | DIAGNOSTIC IMAGING REPORT ---
CHEST ONE VIEW PORTABLE CLINICAL HISTORY: CHEST PAIN dyspnea COMPARISON STUDY: 07/02/2017 FINDINGS: The bones soft tissues and hemidiaphragms are normal. The cardiomediastinal silhouette is normal. The lungs are clear. The pulmonary vasculature is normal. IMPRESSION: Negative chest. The above report was generated using voice recognition software. It may contain grammatical, syntax or spelling errors. Electronically signed by: Chavez Rand M.D. 07/11/2017 7:18 PM Dictated Date/Time: 07/11/2017 7:18 PM
[2017-07-11 19:33] LABS: BASO % 0.8 %; BASO ABS # 0.04 K/uL (0-0.2); EOS % 1.2 %; EOS ABS # 0.06 K/uL (0-0.5); HEMATOCRIT 40.6 % (42-52); HEMOGLOBIN 14.6 g/dL (14.0-18.0); LYMPH % 41.2 %; LYMPH ABS # 2.07 K/uL (1.2-3.4); MEAN CELL VOLUME 87.3 fL (80-100); MEAN CORPUSCULAR HEMOGLOBIN 31.4 pg (25-34); MEAN PLATELET VOLUME 10.8 fL (7.4-10.4); NEUT % 48.8 %; NEUT ABS # 2.46 K/uL (1.4-6.5); PLATELET COUNT 229 K/uL (130-400); RED CELL DISTRIBUTION WIDTH CV 12.9 % (11.5-14.5); RED CELL DISTRIBUTION WIDTH SD 41.2 fL (36.4-46.3); WHITE BLOOD COUNT 5.03 K/uL (4.8-10.8)
[2017-07-11 19:58] LABS: ALBUMIN 4.7 gm/dl (3.4-5.0); ALT/SGPT 25 U/L (12-78); BLOOD UREA NITROGEN 15 mg/dl (7-18); CALCIUM 9.2 mg/dl (8.5-10.1); CARBON DIOXIDE 27 mmol/L (21-32); CREATININE 0.96 mg/dl (0.60-1.40); GLUCOSE 96 mg/dl (70-99); LIPASE 301 U/L (73-393); POTASSIUM 3.4 mmol/L (3.5-5.1); SODIUM 137 mmol/L (136-145)
[2017-07-11 20:09] LABS: ALKALINE PHOSPHATASE 58 U/L (45-117); AST/SGOT 17 U/L (15-37); TOTAL PROTEIN 8.1 gm/dl (6.4-8.2)
[2017-07-11 20:46] VITALS: BP 119/78; PULSE 65; O2SAT 100
== END 2017-07-11 20:47 | disposition home or self-care (01) ==
LOC: EDBD 18:55 → C.EDB 18:56
DX: R06.02 Shortness of breath (principal); R10.10 Upper abdominal pain, unspecified; R10.30 Lower abdominal pain, unspecified; R53.83 Other fatigue; R00.1 Bradycardia, unspecified; Z80.6 Family history of leukemia

== ENCOUNTER 2017-07-14 06:32 | Emergency (ER) | payer OTHER ==
[~2017-07-14] VITALS: Ht 170.2 cm; Wt 50.1 kg
[2017-07-14 06:35] VITALS: TEMP 37.7; Ht 170.2 cm; Wt 50.1 kg
[2017-07-14] MEDS ORDERED: ONDANSETRON INJ 2 MG/ML 2 ML VIAL IV STA (06:39)
[2017-07-14] MEDS ORDERED: SODIUM CHLORIDE 0.9% 1000ML 1,000 ML IV STA (06:39)
[2017-07-14] MEDS ORDERED: KETOROLAC TROMETHAMINE 30 MG/ML VIAL IV STA (06:39)
[2017-07-14 06:50] LABS: BASO % 0.1 %; BASO ABS # 0.01 K/uL (0-0.2); EOS % 0.2 %; EOS ABS # 0.03 K/uL (0-0.5); HEMATOCRIT 43.7 % (42-52); HEMOGLOBIN 15.7 g/dL (14.0-18.0); IG# 0.02 K/uL (0.00-0.02); LYMPH ABS # 0.13 K/uL (1.2-3.4); MEAN CELL VOLUME 87.9 fL (80-100); MEAN CORPUSCULAR HEMOGLOBIN 31.6 pg (25-34); MEAN CORPUSCULAR HGB CONC 35.9 g/dl (32-36); MEAN PLATELET VOLUME 11.3 fL (7.4-10.4); MONO % 3.7 %; MONO ABS # 0.48 K/uL (0.11-0.59); NEUT % 94.8 %; NEUT ABS # 12.26 K/uL (1.4-6.5); PLATELET COUNT 242 K/uL (130-400); RED CELL DISTRIBUTION WIDTH CV 13.2 % (11.5-14.5); RED CELL DISTRIBUTION WIDTH SD 42.3 fL (36.4-46.3); WHITE BLOOD COUNT 12.93 K/uL (4.8-10.8)
[2017-07-14 07:09] LABS: ALBUMIN 4.5 gm/dl (3.4-5.0); CALCIUM 9.3 mg/dl (8.5-10.1); CREATININE 0.89 mg/dl (0.60-1.40); POTASSIUM 3.3 mmol/L (3.5-5.1)
[2017-07-14 07:12] LABS: TOTAL PROTEIN 8.1 gm/dl (6.4-8.2)
--- NOTE | 2017-07-14 07:53 | EMERGENCY ROOM VISIT NOTE ---
History Report prepared by Vy: Tyron Wu Under the Supervision of: Dr. Zeus Rutherford D.O. First contact with patient: 06:38 Chief Complaint: ABDOMINAL PAIN Stated Complaint: ABDOMINAL PAIN Nursing Triage Summary: pt brought to ed via ems from home. pt reports that he has had a dull pain in the right side x 9 days that got very severe at 2100. pt reports vomiting and diarrhea since then. pt has an appointment to see GI today at 1300. History of Present Illness The patient is a 36 year old male who presents to the Emergency Room with complaints of intermittent RUQ abdominal pain beginning a few months ago. The patient states that his pain worsened last night. He describes his pain as "stabbing". He also complains of headache, nausea, vomiting, and diarrhea which began last night as well. The patient states that he has felt very fatigued for the past three months. He denies fevers. He states that he has lost a large amount of weight in the past several months unintentionally. The patient has been worked up for his abdominal pain multiple times. He had a CTA last week which was normal. He is on Suboxone for previous prescription opioid dependence , but states "I barely even take it". The patient feels that he is likely dehydrated. He is scheduled to see a GI specialist later today but states "I just couldn't take the pain". Source of History: patient Onset: nine days ago Position: abdomen (RUQ) Quality: stabbing Timing: intermittent Associated Symptoms: + headache, + nausea, + vomiting, + diarrhea, + fatigue , No fevers Review of Systems See HPI for pertinent positives & negatives. A total of 10 systems reviewed and were otherwise negative. Past Medical & Surgical Medical Problems: (1) Opioid dependence (2) Pneumothorax Family History No pertinent family history stated. Social History Smoking Status: Never Smoker Alcohol Use: none Drug Use: none Marital Status: single Occupation Status: unemployed Current/Historical Medications Scheduled Buprenorphine Hcl-Naloxone Hcl (Suboxone 8-2 Mg), 2 MG PO BID Citalopram Hydrobromide (Citalopram Hydrobromide), 10 MG PO DAILY Ondasetron Odt (Zofran Odt), 4 MG SL Q6H Allergies Coded Allergies: No Known Allergies (Unverified , 07/14/17) Physical Exam Vital Signs Date Time Temp Pulse Resp B/P (MAP) Pulse Ox O2 Delivery O2 Flow Rate FiO2 07/14/17 06:35 37.7 87 20 112/68 99 Room Air Physical Exam CONSTITUTIONAL/VITAL SIGNS: Reviewed / noted above. GENERAL: Non-toxic in appearance. INTEGUMENTARY: Warm, dry, and [place]. HEAD: Normocephalic. EYES: without scleral icterus or trauma. ENT/OROPHARYNX: clear and moist. LYMPHADENOPATHY/NECK: Is supple without lymphadenopathy or meningismus. RESPIRATORY: Lungs clear and equal. CARDIOVASCULAR: Regular rate and rhythm. GI/ABDOMEN: Soft and nontender. No organomegaly or pulsatile mass. No rebound or guarding. Normal bowel sounds. EXTREMITIES: Warm and well perfused. BACK: No CVA tenderness. NEUROLOGICAL: Intact without focal deficits. PSYCHIATRIC: normal affect. MUSCULOSKELETAL: Normally developed with good muscle tone. Medical Decision & Procedures Laboratory Results 07/14/17 06:35 Red Blood Count 4.97, Mean Corpuscular Volume 87.9, Mean Corpuscular Hemoglobin 31.6, Mean Corpuscular Hemoglobin Concent 35.9, Mean Platelet Volume 11.3, Neutrophils (%) (Auto) 94.8, Lymphocytes (%) (Auto) 1.0, Monocytes (%) (Auto) 3.7, Eosinophils (%) (Auto) 0.2, Basophils (%) (Auto) 0.1, Neutrophils # (Auto) 12.26, Lymphocytes # (Auto) 0.13, Monocytes # (Auto) 0.48, Eosinophils # (Auto) 0.03, Basophils # (Auto) 0.01 07/14/17 06:35 Test 07/14/17 06:35 White Blood Count 12.93 K/uL (4.8-10.8) Red Blood Count 4.97 M/uL (4.7-6.1) Hemoglobin 15.7 g/dL (14.0-18.0) Hematocrit 43.7 % (42-52) Mean Corpuscular Volume 87.9 fL (80-100) Mean Corpuscular Hemoglobin 31.6 pg (25-34) Mean Corpuscular Hemoglobin Concent 35.9 g/dl (32-36) Platelet Count 242 K/uL (130-400) Mean Platelet Volume 11.3 fL (7.4-10.4) Neutrophils (%) (Auto) 94.8 % Lymphocytes (%) (Auto) 1.0 % Monocytes (%) (Auto) 3.7 % Eosinophils (%) (Auto) 0.2 % Basophils (%) (Auto) 0.1 % Neutrophils # (Auto) 12.26 K/uL (1.4-6.5) Lymphocytes # (Auto) 0.13 K/uL (1.2-3.4) Monocytes # (Auto) 0.48 K/uL (0.11-0.59) Eosinophils # (Auto) 0.03 K/uL (0-0.5) Basophils # (Auto) 0.01 K/uL (0-0.2) RDW Standard Deviation 42.3 fL (36.4-46.3) RDW Coefficient of Variation 13.2 % (11.5-14.5) Immature Granulocyte % (Auto) 0.2 % Immature Granulocyte # (Auto) 0.02 K/uL (0.00-0.02) Anion Gap 9.0 mmol/L (3-11) Est Creatinine Clear Calc Drug Dose 82.9 ml/min Estimated GFR () 129.3 Estimated GFR (Non- 111.6 BUN/Creatinine Ratio 12.6 (10-20) Calcium Level 9.3 mg/dl (8.5-10.1) Total Bilirubin 1.0 mg/dl (0.2-1) Direct Bilirubin 0.2 mg/dl (0-0.2) Aspartate Amino Transf (AST/SGOT) 18 U/L (15-37) Alanine Aminotransferase (ALT/SGPT) 23 U/L (12-78) Alkaline Phosphatase 54 U/L (45-117) Total Protein 8.1 gm/dl (6.4-8.2) Albumin 4.5 gm/dl (3.4-5.0) Lipase 139 U/L (73-393) Laboratory results as stated above per my review. Medications Administered Medications (Trade) Dose Ordered Sig/Kylah Route Start Time Stop Time Status Last Admin Dose Admin Sodium Chloride 1,000 ml @ 999 mls/hr Q1H1M STAT IV 07/14/17 06:39 07/14/17 07:39 DC 07/14/17 06:59 999 MLS/HR Ondansetron HCl (Zofran Inj) 4 mg NOW STAT IV 07/14/17 06:39 07/14/17 06:41 DC 07/14/17 06:59 4 MG Ketorolac Tromethamine (Toradol Inj) 30 mg NOW STAT IV 07/14/17 06:39 07/14/17 06:41 DC 07/14/17 07:00 30 MG ED Course 0645: Previous medical records were reviewed. The patient was evaluated in room B9. A complete history and physical examination was performed. Ordered Toradol Inj 30 mg IV, Zofran Inj 4 mg IV, Sodium Chloride 1000 ml @ 999 mls/hr IV. 0754: On reevaluation, the patient is resting. I discussed the results and findings with the patient. He verbalized agreement of the treatment plan. The patient was discharged home. Medical Decision Differential diagnosis: Etiologies such as appendicitis, diverticulitis, PUD, biliary pathology, UTI, pancreatitis, obstruction, mesenteric ischemia, aortic pathology, infections, inflammatory bowel disease, renal colic, as well as others were entertained. This is a 36-year-old male who presents to the ED with a chief complaint of right sided abdominal pain. The patient states that his symptoms have been present for months. The patient reports that they worsen last night around 9 PM. He had associated vomiting and watery diarrhea. The patient states that his pain is a stabbing pain in the right upper quadrant. He states that he had a CT scan of the abdomen pelvis with oral IV contrast 5 days ago. This was done here and did not show any acute abnormality. This was for his same pain. The patient has an appointment to see the GI specialist at 1:00 today. EMS provided IV fentanyl. The patient has a relatively unremarkable exam. His white blood cell count was 12.9. Potassium was 3.3. Complete metabolic panel was otherwise normal and lipase was negative. The patient was told the results of the test. He was treated with IV fluids, IV Zofran and IV Toradol. The patient is on Suboxone. He was felt to be stable for discharge. Medication Reconcilliation Current Medication List: was personally reviewed by me Blood Pressure Screening Patient's blood pressure: Normal blood pressure Blood pressure disposition: Did not require urgent referral Impression Primary Impression: Abdominal pain Additional Impression: Vomiting and diarrhea Scribe Attestation The scribe's documentation has been prepared under my direction and personally reviewed by me in its entirety. I confirm that the note above accurately reflects all work, treatment, procedures, and medical decision making performed by me. Departure Information Dispostion Home / Self-Care Prescriptions Ondasetron Odt (ZOFRAN ODT) 4 Mg Tab 4 MG SL Q6H for Nausea, #15 TAB Prov: Zeus Rutherford D.O. 07/14/17 Referrals Rosenda Melo D.O. (PCP) Patient Instructions My [facility] Additional Instructions Follow-up with your doctor for further care and evaluation in 1-2 days. Return to the emergency department for worsening or new symptoms or any concerns. You have been examined and treated today on an emergency basis only. This is not a substitute for, or an effort to provide, complete comprehensive medical care. It is impossible to recognize and treat all injuries or illnesses in a single emergency department visit. It is therefore important that you follow up closely with your doctor. Call as soon as possible for an appointment. Follow-up with your GI specialist at 1:00 pm as scheduled. Problem Qualifiers
[2017-07-14] MEDS ORDERED: ONDA4TAB10 SL (07:57)
[2017-07-14 08:14] VITALS: BP 92/64; PULSE 91; O2SAT 98
== END 2017-07-14 08:16 | disposition home or self-care (01) ==
LOC: EDBD 06:32 → C.EDB 06:33
DX: R10.11 Right upper quadrant pain (principal); R11.10 Vomiting, unspecified; R19.7 Diarrhea, unspecified; F11.20 Opioid dependence, uncomplicated; Z87.09 Personal history of other diseases of the respiratory system

== ENCOUNTER 2017-08-02 11:54 | Emergency (ER) | payer OTHER ==
[~2017-08-02] VITALS: Ht 172.7 cm; Wt 52.7 kg
[~2017-08-02 11:54] MED LIST changes: +ONDA4TAB10 SL
[2017-08-02 11:56] VITALS: TEMP 36.7; Ht 172.7 cm; Wt 52.7 kg
[2017-08-02] MEDS ORDERED: ASPI-435 PO (12:17)
[2017-08-02] MEDS ORDERED: DIPH25CA65 PO (12:17)
[2017-08-02 12:25] LABS: BASO % 0.4 %; BASO ABS # 0.02 K/uL (0-0.2); EOS % 0.8 %; EOS ABS # 0.04 K/uL (0-0.5); HEMATOCRIT 37.7 % (42-52); HEMOGLOBIN 13.5 g/dL (14.0-18.0); LYMPH % 25.8 %; LYMPH ABS # 1.32 K/uL (1.2-3.4); MEAN CELL VOLUME 87.5 fL (80-100); MEAN CORPUSCULAR HEMOGLOBIN 31.3 pg (25-34); MEAN CORPUSCULAR HGB CONC 35.8 g/dl (32-36); MEAN PLATELET VOLUME 10.1 fL (7.4-10.4); MONO % 12.1 %; MONO ABS # 0.62 K/uL (0.11-0.59); NEUT % 60.9 %; NEUT ABS # 3.11 K/uL (1.4-6.5); PLATELET COUNT 215 K/uL (130-400); RED CELL DISTRIBUTION WIDTH CV 12.9 % (11.5-14.5); RED CELL DISTRIBUTION WIDTH SD 41.7 fL (36.4-46.3); WHITE BLOOD COUNT 5.11 K/uL (4.8-10.8)
--- NOTE | 2017-08-02 12:34 | DIAGNOSTIC IMAGING REPORT ---
CHEST 2 VIEWS ROUTINE CLINICAL HISTORY: 37 years-old Male presenting with unexplained wt loss, fatigue. TECHNIQUE: PA and lateral views of the chest were obtained. COMPARISON: 07/11/2017. FINDINGS: Cardiomediastinal silhouette normal. Lungs and pleural spaces clear. Osseous structures normal. Upper abdomen normal. IMPRESSION: 1. No acute cardiopulmonary disease. Electronically signed by: Leonardo Faulkner M.D. 08/02/2017 12:32 PM Dictated Date/Time: 08/02/2017 12:31 PM
[2017-08-02 12:40] LABS: CREATININE 0.81 mg/dl (0.60-1.40)
[2017-08-02 12:41] LABS: ALBUMIN 4.1 gm/dl (3.4-5.0); CALCIUM 8.8 mg/dl (8.5-10.1); POTASSIUM 3.5 mmol/L (3.5-5.1)
[2017-08-02 12:51] LABS: TOTAL PROTEIN 7.5 gm/dl (6.4-8.2)
[2017-08-02 13:57] VITALS: BP 103/67; PULSE 60; O2SAT 100
--- NOTE | 2017-08-08 17:35 | EMERGENCY ROOM VISIT NOTE ---
History First contact with patient: 11:57 Chief Complaint: OTHER COMPLAINT Stated Complaint: JOINT PAIN/FATIGUE History of Present Illness The patient is a 37 year old white male who presents to the Emergency Room with complaints of myalgias, arthralgias, fatigue, and significant weight loss. He arrives by BLS ambulance. Patient states over the last 3 months he has lost 30 pounds unintentionally. He states he is eating all the time and has tried a 3000-calorie diet. He continues to lose weight. He states he has been seeing his PCP numerous times for his complaints. He is also seen gastroenterology. He states "something must be wrong but nobody is finding anything." No new complaints today. He denies any nausea or vomiting. No diarrhea. He believes his thyroid has been checked and is normal. He had a CT scan of his abdomen and pelvis in mid June that was unremarkable. There is no acute process. Normal appendix. No bowel obstruction. He states he is worried and verbally expresses that he is concerned about cancer. No chest pain or shortness of breath. No abdominal pain. obstruction. He states he is scheduled for a cholecystectomy on Friday. This was due to poor ejection quality and was found on HIDA scan. Review of Systems REVIEW OF SYSTEM: HEENT: No dizziness, visual problems, hearing loss, or tinnitus. There is no difficulty swallowing and no oral lesions are present. PULMONARY: No cough, shortness of breath, sputum production or hemoptysis. CARDIOVASCULAR: No chest pain, palpitations, shortness of breath or peripheral edema. GASTROINTESTINAL: No diarrhea, constipation, nausea, vomiting, or abdominal pain. He does have unexplained weight loss. GENITOURINARY: No dysuria, frequency, urgency or nocturia. NEUROLOGIC: No weakness, muscle tenderness, epilepsy or history of neurological problems. MUSCULOSKELETAL: No history of joint swelling. Positive history of myalgias and arthralgias. SKIN: No rashes or lesions. PSYCHIATRIC: No history of depression or mental illness. Positive history of substance abuse. ENDOCRINE: No history of diabetes, thyroid disorders, or abnormal hair growth. Past Medical/Surgical History Medical Problems: (1) Opioid dependence (2) Pneumothorax Family History Unremarkable. This was reviewed with the patient. Social History Smoking Status: Never Smoker Smokeless Tobacco Use: No Alcohol Use: none Drug Use: other Marital Status: single Housing Status: lives with family Occupation Status: unemployed Current/Historical Medications Scheduled Aspirin (Aspirin 81), 1 TAB PO UD Buprenorphine Hcl-Naloxone Hcl (Suboxone 8-2 Mg), 2 MG PO BID Diphenhydramine Hcl (Benadryl Allergy), 0.5 CAP PO HS Allergies Coded Allergies: No Known Allergies (Unverified , 08/02/17) Physical Exam Vital Signs Date Time Temp Pulse Resp B/P (MAP) Pulse Ox O2 Delivery O2 Flow Rate FiO2 08/02/17 13:57 60 16 103/67 100 08/02/17 12:54 61 14 96/68 96 Room Air 08/02/17 12:23 56 08/02/17 11:56 36.7 62 14 106/70 100 Room Air Physical Exam General: Well-developed, thin, young white male, in no acute distress. Laying on a bed. Alert and oriented. Skin: Warm and dry with fair turgor. No rashes or lesions. Skin is dry. No ecchymosis or erythema. The patient is not diaphoretic. No abrasions. HEENT: Normocephalic atraumatic. Eyes PERRLA, EOMI. No conjunctiva or scleral injection. Eyes do appear to be sunken in. Ears TMs intact bilaterally with good light reflexes. No erythema or bulging. No hemotympanum. Canals are patent. Nares patent bilaterally without turbinate enlargement. No significant drainage. No epistaxis. Oropharynx without erythema or exudate. Uvula midline, oral mucosa moist. No lesions present. Lymphatics are palpated without anterior or posterior chain enlargement or tenderness. Heart: Heart RRR. No MGR. Peripheral pulses are 2+. Lungs: Lungs are clear to auscultation. No crackles rhonchi or wheezing. Good air movement. The patient is able to take a deep breath. Abdomen: Abdomen was inspected, auscultated, and palpated. Bowel sounds present x 4. Soft, nontender to palpation. Specifically, he has no pain over the right upper or central upper abdomen. No hepato-splenomegaly. No masses noted. No rebound. No CVA tenderness. Musculoskeletal: Patient is intact motor function to the upper and lower extremities. Normal motion at the shoulders, elbows, wrists, hips, knees, and ankles. No visible intra-articular effusions. Neurologic: Gross sensation is intact across the upper and lower extremities by soft touch. Medical Decision & Procedures Laboratory Results 08/02/17 12:10 Red Blood Count 4.31, Mean Corpuscular Volume 87.5, Mean Corpuscular Hemoglobin 31.3, Mean Corpuscular Hemoglobin Concent 35.8, Mean Platelet Volume 10.1, Neutrophils (%) (Auto) 60.9, Lymphocytes (%) (Auto) 25.8, Monocytes (%) (Auto) 12.1, Eosinophils (%) (Auto) 0.8, Basophils (%) (Auto) 0.4, Neutrophils # (Auto ) 3.11, Lymphocytes # (Auto) 1.32, Monocytes # (Auto) 0.62, Eosinophils # (Auto ) 0.04, Basophils # (Auto) 0.02 08/02/17 12:10 Test 08/02/17 12:10 White Blood Count 5.11 K/uL (4.8-10.8) Red Blood Count 4.31 M/uL (4.7-6.1) Hemoglobin 13.5 g/dL (14.0-18.0) Hematocrit 37.7 % (42-52) Mean Corpuscular Volume 87.5 fL (80-100) Mean Corpuscular Hemoglobin 31.3 pg (25-34) Mean Corpuscular Hemoglobin Concent 35.8 g/dl (32-36) Platelet Count 215 K/uL (130-400) Mean Platelet Volume 10.1 fL (7.4-10.4) Neutrophils (%) (Auto) 60.9 % Lymphocytes (%) (Auto) 25.8 % Monocytes (%) (Auto) 12.1 % Eosinophils (%) (Auto) 0.8 % Basophils (%) (Auto) 0.4 % Neutrophils # (Auto) 3.11 K/uL (1.4-6.5) Lymphocytes # (Auto) 1.32 K/uL (1.2-3.4) Monocytes # (Auto) 0.62 K/uL (0.11-0.59) Eosinophils # (Auto) 0.04 K/uL (0-0.5) Basophils # (Auto) 0.02 K/uL (0-0.2) RDW Standard Deviation 41.7 fL (36.4-46.3) RDW Coefficient of Variation 12.9 % (11.5-14.5) Immature Granulocyte % (Auto) 0.0 % Immature Granulocyte # (Auto) 0.00 K/uL (0.00-0.02) Anion Gap 6.0 mmol/L (3-11) Est Creatinine Clear Calc Drug Dose 94.9 ml/min Estimated GFR () 133.5 Estimated GFR (Non- 115.1 BUN/Creatinine Ratio 19.0 (10-20) Calcium Level 8.8 mg/dl (8.5-10.1) Total Bilirubin 1.1 mg/dl (0.2-1) Aspartate Amino Transf (AST/SGOT) 20 U/L (15-37) Alanine Aminotransferase (ALT/SGPT) 35 U/L (12-78) Alkaline Phosphatase 55 U/L (45-117) Total Protein 7.5 gm/dl (6.4-8.2) Albumin 4.1 gm/dl (3.4-5.0) Globulin 3.4 gm/dl (2.5-4.0) Albumin/Globulin Ratio 1.2 (0.9-2) Amylase Level 77 U/L (25-115) Lipase 157 U/L (73-393) Thyroid Stimulating Hormone (TSH) 0.888 uIu/ml (0.300-4.500) Lyme Disease IgG Antibody NEG (NEG) Lyme Disease IgM Antibody NEG (NEG) CBC, chemistry panel, amylase, lipase, TSH, and Lyme titers were obtained. These are all unremarkable. ED Course Patient was educated regarding today's findings. Conservative care measures were discussed. He was reassured that I find nothing abnormal in his lab work. He may require further GI workup. He is artery been tested for celiac and has been found to be normal. He may require further endocrine workup as well. He should speak with his PCP about this. He was encouraged to maintain his calorie intake. Return to the ED for any acute changes. Follow-up for his cholecystectomy on Friday as scheduled. Medical Decision Possibility of malabsorption syndrome, parasite, viral enteritis, psychiatric disease, and endocrine disorder were considered among others. Impression Primary Impression: Recent unexplained weight loss Departure Information Dispostion Home / Self-Care Condition GOOD Forms WORK / SCHOOL INSTRUCTIONS, HOME CARE DOCUMENTATION FORM, IMPORTANT VISIT INFORMATION Patient Instructions My [facility] Additional Instructions Follow-up with your PCP this week Maintain hydration Follow up on Friday for your gallbladder surgery is scheduled
== END 2017-08-02 13:55 | disposition home or self-care (01) ==
LOC: C.EDC 11:54 → EDBD 11:54 → C.EDC 13:55
DX: R63.4 Abnormal weight loss (principal); F11.20 Opioid dependence, uncomplicated; Z79.82 Long term (current) use of aspirin; Z79.899 Other long term (current) drug therapy